=== PATIENT | female | born 1995 | race Two or more races ===

== ENCOUNTER 2018-01-02 04:56 | Emergency (ER) | payer SELFPAY ==
[~2018-01-02] VITALS: Ht 157.5 cm; Wt 51.0 kg
[2018-01-02] MEDS ORDERED: IBUPROFEN 600MG TABLET PO ONE (06:30)
[2018-01-02] MEDS ORDERED: LIDOCAINE 1%/EPI 1:100,000 10 ML VIAL IJ ONE (06:30)
[2018-01-02] MEDS ORDERED: TETANUS, DIPHTHERIA, PERTUSSIS VAC/PF 0.5ML (>7YR OLD) IM ONE (06:30)
[2018-01-02] MEDS ORDERED: LIDOCAINE HCL/EPINEPHRINE 1%-EPI 1:100,000 20 ML VIAL INFIL ONE (06:37)
[2018-01-02 09:16] VITALS: BP 124/87
== END 2018-01-02 09:17 | disposition home or self-care (01) ==
LOC: ER 04:56
DX: S81.811A Laceration without foreign body, right lower leg, initial encounter (principal); F17.200 Nicotine dependence, unspecified, uncomplicated; X58.XXXA Exposure to other specified factors, initial encounter; Y93.89 Activity, other specified; Y92.89 Other specified places as the place of occurrence of the external cause; Y99.8 Other external cause status
CPT/HCPCS: 12005; 90471; 90715; 99284; J3490; X7700; Z7610

== ENCOUNTER 2018-01-08 21:01 | Emergency (ER) | payer SELFPAY ==
[~2018-01-08] VITALS: Ht 160 cm; Wt 51.0 kg
[2018-01-08] MEDS ORDERED: BACITRACIN ZINC OINT UDPKT TOP ONE (23:15)
[2018-01-08] MEDS ORDERED: IBUPROFEN 600MG TABLET PO ONE (23:15)
[2018-01-08 23:32] VITALS: BP 103/50
== END 2018-01-09 01:20 | disposition home or self-care (01) ==
LOC: EDBD 21:01 → ER 21:01
DX: S81.811D Laceration without foreign body, right lower leg, subsequent encounter (principal); F17.200 Nicotine dependence, unspecified, uncomplicated; X58.XXXD Exposure to other specified factors, subsequent encounter
CPT/HCPCS: 99282; 99283

== ENCOUNTER 2018-01-17 02:45 | Emergency (ER) | payer SELFPAY ==
[~2018-01-17] VITALS: Ht 160 cm; Wt 53.0 kg
[2018-01-17 04:59] VITALS: BP 118/80
[2018-01-17] MEDS ORDERED: BACITRACIN ZINC OINT UDPKT TOP ONE (07:15)
== END 2018-01-17 09:59 | disposition home or self-care (01) ==
LOC: ER 09:42
DX: S81.811D Laceration without foreign body, right lower leg, subsequent encounter (principal); F17.200 Nicotine dependence, unspecified, uncomplicated; X58.XXXD Exposure to other specified factors, subsequent encounter
CPT/HCPCS: 99283; Z7610; 99282